=== PATIENT | male | born 1955 | race Caucasian/White ===

== ENCOUNTER 2018-03-01 14:39 | Emergency (ER) | payer OTHER ==
[~2018-03-01] VITALS: Ht 188 cm; Wt 133.8 kg
[2018-03-01 14:40] VITALS: BP_SYST 142
[2018-03-01 17:16] VITALS: BP_SYST 132
== END 2018-03-01 17:16 | disposition home or self-care (01) ==
LOC: SED 14:39
DX: R55 Syncope and collapse (principal); E11.9 Type 2 diabetes mellitus without complications; I10 Essential (primary) hypertension; Z86.79 Personal history of other diseases of the circulatory system; Y08.89XA Assault by other specified means, initial encounter; Y93.89 Activity, other specified; Y92.89 Other specified places as the place of occurrence of the external cause; Y99.8 Other external cause status
CPT/HCPCS: 70450-TC; 99284